=== PATIENT | female | born 1970 | race Caucasian/White ===

== ENCOUNTER 2017-05-18 16:11 | Emergency (ER) | payer SELFPAY ==
--- NOTE | 2017-05-18 17:10 | ER Document Report ---
ED Medical Screen (RME) - General Chief Complaint: Irregular Pulse Stated Complaint: POSSIBLE IRREGULAR HEARTBEAT Time Seen by Provider: 05/18/17 17:08 Mode of Arrival: Ambulatory Information source: Patient TRAVEL OUTSIDE OF THE [place] IN LAST 30 DAYS: No - HPI Patient complains to provider of: palpitations Onset: This afternoon - pt wsa driving in her car earlier when she felt her heart beating irregularly. She denies CP, SOB - Related Data Allergies/Adverse Reactions: No Known Allergies Allergy (Unverified 05/18/17 16:21) Physical Exam - Vital signs Vitals: Temp Pulse Resp BP Pulse Ox 98.4 F 76 16 175/94 H 100 05/18/17 16:30 05/18/17 16:30 05/18/17 16:30 05/18/17 16:30 05/18/17 16:30 Course - Vital Signs Vital signs: Temp Pulse Resp BP Pulse Ox 98.4 F 76 16 175/94 H 100 05/18/17 16:30 05/18/17 16:30 05/18/17 16:30 05/18/17 16:30 05/18/17 16:30
[2017-05-18 17:32] LABS: ABSOLUTE BASOPHILS # (AUTO) 0.1 10^3/uL (0.0-0.2); ABSOLUTE LYMPHOCYTES (AUTO) 1.4 10^3/uL (0.5-4.7); ABSOLUTE MONOCYTES (AUTO) 0.7 10^3/uL (0.1-1.4); ABSOLUTE NEUT (AUTO) 9.1 10^3/uL (1.7-8.2); BASOPHILS % (AUTO) 0.4 % (0-2); EOSINOPHILS % (AUTO) 0.3 % (0-6); HEMATOCRIT 42.5 % (36.0-47.0); HEMOGLOBIN 14.6 g/dL (12.0-15.5); LYMPHOCYTES % (AUTO) 12.4 % (13-45); MEAN CORPUSCULAR HGB CONC 34.4 g/dL (32.0-36.0); MEAN CORPUSCULAR VOLUME 90 fl (80-97); PLATELET COUNT 358 10^3/uL (150-450); RED BLOOD COUNT 4.72 10^6/uL (3.72-5.28); RED CELL DISTRIBUTION WIDTH 12.5 % (11.5-14.0); SEGMENTED NEUTROPHILS % (AUTO) 80.9 % (42-78); TOTAL CELLS COUNTED % (AUTO) 100 %; WHITE BLOOD COUNT 11.3 10^3/uL (4.0-10.5)
[2017-05-18 17:47] LABS: ALANINE AMINOTRANSFERASE 31 U/L (9-52); ALBUMIN 4.8 g/dL (3.5-5.0); ALKALINE PHOSPHATASE 79 U/L (38-126); ANION GAP 10 (5-19); ASPARTATE AMINO TRANSFERASE 22 U/L (14-36); BILIRUBIN,DIRECT 0.5 mg/dL (0.0-0.4); BILIRUBIN,TOTAL 0.5 mg/dL (0.2-1.3); BLOOD UREA NITROGEN 8 mg/dL (7-20); CALCIUM 10.5 mg/dL (8.4-10.2); CARBON DIOXIDE 27 mmol/L (22-30); CHLORIDE 93 mmol/L (98-107); CREATINE KINASE 60 U/L (30-135); GLUCOSE 101 mg/dL (75-110); POTASSIUM 4.4 mmol/L (3.6-5.0); SODIUM 129.6 mmol/L (137-145); TOTAL PROTEIN 8.1 g/dL (6.3-8.2)
[2017-05-18 17:54] LABS: CREATINE KINASE MB 0.42 ng/mL (<4.55)
[2017-05-18 17:59] LABS: TROPONIN I < 0.012 ng/mL
--- NOTE | 2017-05-18 18:08 | EKG REPORT ---
SEVERITY:- BORDERLINE ECG - SINUS RHYTHM PROBABLE LEFT ATRIAL ABNORMALITY : Confirmed by: Balbir Watson MD 18-May-2017 18:08:08
[2017-05-18] MEDS ORDERED: NORMAL SALINE 1000 ML 1,000 ML IV ONE (19:30)
[2017-05-18] MEDS ORDERED: LIDOCAINE 2% VISCOUS SOLN 20 ML UDCUP PO ONE (19:57)
[2017-05-18] MEDS ORDERED: MAG HYDROX/AL HYDROX/SIMETH SUSP 30 ML UDCUP PO ONE (19:57)
[2017-05-18] MEDS ORDERED: METOCLOPRAMIDE HCL ORAL SOLN 10 MG/10 ML UDCUP PO ONE (19:57)
--- NOTE | 2017-05-18 19:59 | ER Document Report ---
ED Cardiac - General Chief Complaint: Irregular Pulse Stated Complaint: POSSIBLE IRREGULAR HEARTBEAT Time Seen by Provider: 05/18/17 17:08 Mode of Arrival: Ambulatory Information source: Patient Notes: Patient is a 46-year-old female who presents to the ER today for feeling of having an abnormal heart rate that started approximately 2 hours ago. Patient states that she has never had this before. She takes blood pressure medication , losartan 50 mg daily and did take it today. She states that her blood pressure is been high however, over the past 2 weeks she has been checking it and it has run about 160/100. She also admits to feeling like she has to belch but cannot and some stomach "uneasiness." Patient states that she does struggle with gastritis. She denies any cough, shortness of breath, history of any heart attack or stroke, high cholesterol. She has never had a stress test. TRAVEL OUTSIDE OF THE [place] IN LAST 30 DAYS: No - Related Data Allergies/Adverse Reactions: No Known Allergies Allergy (Unverified 05/18/17 16:21) Past Medical History - General Information source: Patient - Social History Smoking Status: Never Smoker Chew tobacco use (# tins/day): No Frequency of alcohol use: None Drug Abuse: None Family History: Reviewed & Not Pertinent Patient has suicidal ideation: No Patient has homicidal ideation: No - Past Medical History Cardiac Medical History: Reports: Hx Hypertension Renal/ Medical History: Denies: Hx Peritoneal Dialysis Review of Systems - Review of Systems Constitutional: No symptoms reported EENT: No symptoms reported Cardiovascular: See HPI Respiratory: No symptoms reported Gastrointestinal: See HPI Genitourinary: No symptoms reported Female Genitourinary: No symptoms reported Musculoskeletal: No symptoms reported Skin: No symptoms reported Hematologic/Lymphatic: No symptoms reported Neurological/Psychological: No symptoms reported Physical Exam - Vital signs Vitals: Temp Pulse Resp BP Pulse Ox 98.4 F 76 16 175/94 H 100 05/18/17 16:30 05/18/17 16:30 05/18/17 16:30 05/18/17 16:30 05/18/17 16:30 - Notes Notes: PHYSICAL EXAMINATION: GENERAL: Well-appearing and in no acute distress. HEAD: Atraumatic, normocephalic. EYES: Pupils equal round and reactive to light, extraocular movements intact, sclera anicteric, conjunctiva are normal. ENT: ear canals without erythema or foreign body, TMs pearly serra with good bony landmarks, nares patent, oropharynx clear without exudates. Moist mucous membranes. NECK: Normal range of motion, supple without lymphadenopathy LUNGS: CTAB and equal. No wheezes rales or rhonchi. HEART: Chest nontender to palpation, regular rate and rhythm without murmurs ABDOMEN: Soft, no tenderness. No guarding, no rebound BACK: no vertebral tenderness, normal ROM GI/: no CVA tenderness EXTREMITIES: Normal range of motion, no pitting edema. No cyanosis. NEUROLOGICAL: Cranial nerves grossly intact. Normal sensory/motor exams. PSYCH: Normal mood, normal affect. SKIN: Warm, Dry, normal turgor, no rashes or lesions noted Course - Re-evaluation Re-evalutation: 05/18/17 22:21 No abnormality and EKGs or cardiac monitoring while here in the emergency department. EKGs revealed normal sinus rhythm without evidence of ischemia or abnormality 2. Patient felt better after GI cocktail, then started complaining of some chest pain in the upper chest on the right and left. Her blood pressure at this time was 163/108. Clonidine was given to her and brought her blood pressure down to 143/88, patient stating that she feels "much better." At this time 2 sets of troponins are negative, greater than 3 hours apart. I will send her home with medication for gastritis as well as clonidine in case she needs it to bring her blood pressure down at home and she is to follow-up with her primary care provider. - Vital Signs Vital signs: Temp Pulse Resp BP Pulse Ox 98.4 F 76 14 148/86 H 97 05/18/17 16:30 05/18/17 16:30 05/18/17 23:00 05/18/17 22:01 05/18/17 23:00 - Laboratory Result Diagrams: 05/18/17 17:20 05/18/17 17:20 Laboratory results interpreted by me: 05/18/17 05/18/17 17:20 17:20 WBC 11.3 H Seg Neutrophils % 80.9 H Lymphocytes % 12.4 L Absolute Neutrophils 9.1 H Sodium 129.6 L Chloride 93 L Calcium 10.5 H Direct Bilirubin 0.5 H Discharge - Discharge Clinical Impression: Epigastric pain Chest pain Qualifiers: Chest pain type: unspecified Qualified Code(s): R07.9 - Chest pain, unspecified HTN (hypertension) Qualifiers: Hypertension type: essential hypertension Qualified Code(s): I10 - Essential ( primary) hypertension Condition: Stable Disposition: HOME, SELF-CARE Additional Instructions: Take the clonidine if your blood pressure is 160/100 or higher. Please take only 1 pill. Return immediately for any new or worsening symptoms. Follow up with primary care provider, call tomorrow to make followup appointment. Prescriptions: Clonidine HCl 0.1 mg PO BID PRN #15 tablet PRN Reason: Omeprazole Magnesium [Prilosec Otc] 20 mg PO DAILY #30 tablet. Sucralfate [Carafate 1 gm Tablet] 1 gm PO ACHS #40 tablet
[2017-05-18] MEDS ORDERED: CLONIDINE HCL 0.1 MG TABLET PO ONE (20:46)
[2017-05-18 23:02] VITALS: BP 148/86
--- NOTE | 2017-05-19 07:30 | EKG REPORT ---
SEVERITY:- BORDERLINE ECG - SINUS RHYTHM NONSPECIFIC ST-T CHANGES- INFERIOR LEADS : Confirmed by: Balbir Watson MD 19-May-2017 07:29:25
== END 2017-05-18 23:15 | disposition home or self-care (01) ==
LOC: ER 16:11
DX: R07.9 Chest pain, unspecified (principal); K29.70 Gastritis, unspecified, without bleeding; R10.13 Epigastric pain; I10 Essential (primary) hypertension; Z79.899 Other long term (current) drug therapy
CPT/HCPCS: 93005; 99285; 96360; 36415; 82553; 82550; 85025; 80053; 84484; 93010; J3490; J7030

== ENCOUNTER 2017-05-20 17:58 | Emergency (ER) | payer MEDICAID ==
--- NOTE | 2017-05-20 19:42 | ER Document Report ---
ED Medical Screen (RME) - General Chief Complaint: Epigastric Pain Stated Complaint: BLOOD PRESSUE PROBLEMS Time Seen by Provider: 05/20/17 19:39 Notes: Patient complaining of persistent chest pain. Also located in the epigastric region. Was seen here a few nights ago and had a workup. Was in the ER for 6 hours. Pain came back. Patient is tearful and crying. Patient also stating that she has a little pressure on her chest. Blood pressure has been elevated. I have greeted and performed a rapid initial assessment of this patient. A comprehensive ED assessment and evaluation of the patient, analysis of test results and completion of the medical decision making process will be conducted by additional ED providers. TRAVEL OUTSIDE OF THE [place] IN LAST 30 DAYS: No - Related Data Allergies/Adverse Reactions: No Known Allergies Allergy (Unverified 05/18/17 16:21) Past Medical History - Past Medical History Cardiac Medical History: Reports: Hx Hypertension Renal/ Medical History: Denies: Hx Peritoneal Dialysis Review of Systems - Review of Systems Constitutional: denies: Fever, Malaise, Weakness EENT: denies: Eye pain, Blurred vision Cardiovascular: Chest pain, Palpitations, Heart racing Respiratory: denies: Cough, Hurts to breathe, Short of breath Gastrointestinal: Abdominal pain. denies: Diarrhea, Nausea, Vomiting Physical Exam - Vital signs Vitals: Temp Pulse Resp BP Pulse Ox 98.6 F 83 20 157/82 H 100 05/20/17 18:12 05/20/17 18:12 05/20/17 18:12 05/20/17 18:12 05/20/17 18:12 Interpretation: Normal - Respiratory Respiratory status: No respiratory distress Chest status: Nontender Breath sounds: Normal Chest palpation: Normal. No: Subcutaneous emphysema - Cardiovascular Rhythm: Regular Heart sounds: Normal auscultation Murmur: No Course - Vital Signs Vital signs: Temp Pulse Resp BP Pulse Ox 98.6 F 83 20 157/82 H 100 05/20/17 18:12 05/20/17 18:12 05/20/17 18:12 05/20/17 18:12 05/20/17 18:12
[2017-05-20 20:30] LABS: ABSOLUTE BASOPHILS # (AUTO) 0.1 10^3/uL (0.0-0.2); ABSOLUTE LYMPHOCYTES (AUTO) 2.4 10^3/uL (0.5-4.7); ABSOLUTE MONOCYTES (AUTO) 0.8 10^3/uL (0.1-1.4); BASOPHILS % (AUTO) 0.5 % (0-2); EOSINOPHILS % (AUTO) 0.2 % (0-6); HEMATOCRIT 42.6 % (36.0-47.0); HEMOGLOBIN 14.5 g/dL (12.0-15.5); LYMPHOCYTES % (AUTO) 23.1 % (13-45); MEAN CORPUSCULAR HEMOGLOBIN 30.9 pg (27.0-33.4); MEAN CORPUSCULAR VOLUME 91 fl (80-97); MONOCYTES % (AUTO) 7.7 % (3-13); PLATELET COUNT 371 10^3/uL (150-450); RED BLOOD COUNT 4.69 10^6/uL (3.72-5.28); RED CELL DISTRIBUTION WIDTH 12.6 % (11.5-14.0); SEGMENTED NEUTROPHILS % (AUTO) 68.5 % (42-78); TOTAL CELLS COUNTED % (AUTO) 100 %; WHITE BLOOD COUNT 10.2 10^3/uL (4.0-10.5)
--- NOTE | 2017-05-20 20:32 | RADIOLOGY REPORT (SQ) ---
EXAM DESCRIPTION: CHEST PA/LAT COMPLETED DATE/TIME: 05/20/2017 8:24 pm REASON FOR STUDY: chest pain COMPARISON: None. EXAM PARAMETERS: NUMBER OF VIEWS: two views TECHNIQUE: Digital Frontal and Lateral radiographic views of the chest acquired. RADIATION DOSE: NA LIMITATIONS: none FINDINGS: LUNGS AND PLEURA: No opacities, masses or pneumothorax. No pleural effusion. MEDIASTINUM AND HILAR STRUCTURES: No masses or contour abnormalities. HEART AND VASCULAR STRUCTURES: Heart normal size. No evidence for failure. BONES: No acute findings. HARDWARE: None in the chest. OTHER: No other significant finding. IMPRESSION: NO SIGNIFICANT RADIOGRAPHIC FINDING IN THE CHEST. TECHNICAL DOCUMENTATION: JOB ID: [id number] [employer]- All Rights Reserved
[2017-05-20 20:35] LABS: APPEARANCE,URINE CLEAR; BILIRUBIN,URINE NEGATIVE (NEGATIVE); COLOR,URINE STRAW; GLUCOSE, URINE NEGATIVE (NEGATIVE); KETONES,URINE TRACE mg/dL (NEGATIVE); LEUKOCYTE ESTERASE,URINE NEGATIVE (NEGATIVE); NITRITE,URINE NEGATIVE (NEGATIVE); PROTEIN,URINE NEGATIVE (NEGATIVE); URINE SPECIFIC GRAVITY 1.003; UROBILINOGEN,URINE NEGATIVE mg/dL (<2.0)
[2017-05-20 20:47] LABS: ALANINE AMINOTRANSFERASE 32 U/L (9-52); ALBUMIN 4.7 g/dL (3.5-5.0); ALKALINE PHOSPHATASE 72 U/L (38-126); ANION GAP 11 (5-19); ASPARTATE AMINO TRANSFERASE 22 U/L (14-36); BILIRUBIN,DIRECT 0.5 mg/dL (0.0-0.4); BILIRUBIN,TOTAL 0.7 mg/dL (0.2-1.3); BLOOD UREA NITROGEN 6 mg/dL (7-20); CALCIUM 10.4 mg/dL (8.4-10.2); CARBON DIOXIDE 26 mmol/L (22-30); CHLORIDE 97 mmol/L (98-107); GLUCOSE 98 mg/dL (75-110); LIPASE 44.6 U/L (23-300); POTASSIUM 3.7 mmol/L (3.6-5.0); SODIUM 133.9 mmol/L (137-145); TOTAL PROTEIN 8.1 g/dL (6.3-8.2)
--- NOTE | 2017-05-20 22:07 | ER Document Report ---
ED General - General Chief Complaint: Epigastric Pain Stated Complaint: BLOOD PRESSUE PROBLEMS Time Seen by Provider: 05/20/17 19:39 Notes: Patient is a 46-year-old female presents with complaint of pain in the upper abdomen that is mostly epigastric. The pain then radiates up her chest and feels as if she has something in her throat. She seen a few days ago for this. She was placed on Prilosec as well as sucralfate. She says she has been taking that. She says she admits that she does not eat well. She says the symptoms seem to get worse every time she eats. She also has history of high blood pressure. She is currently visiting from [place]. Her doctors back in [place]. She is on losartan 50 mg a day. She says that this still was not controlling her blood pressure well. She denies any history of abdominal surgeries. No vomiting associated with this. No blood in her stool. No dark tarry stools. No fevers. She has had some recent URI type symptoms. No history of coronary disease. She does not smoke. She drinks approximately 3-4 days a week. She says she only drinks 1-2 beers on those days. TRAVEL OUTSIDE OF THE [place] IN LAST 30 DAYS: No - Related Data Allergies/Adverse Reactions: No Known Allergies Allergy (Unverified 05/18/17 16:21) Past Medical History - Social History Smoking Status: Never Smoker Chew tobacco use (# tins/day): No Frequency of alcohol use: Social Drug Abuse: None Family History: Reviewed & Not Pertinent Patient has suicidal ideation: No Patient has homicidal ideation: No - Past Medical History Cardiac Medical History: Reports: Hx Hypertension Renal/ Medical History: Denies: Hx Peritoneal Dialysis Review of Systems - Review of Systems Notes: My Normal Review Basic REVIEW OF SYSTEMS: CONSTITUTIONAL : Denies fever, chills, or sweats. Denies recent illness. EENT: Denies eye, ear, throat, or mouth pain or symptoms. Denies nasal or sinus congestion. CARDIOVASCULAR: Pain radiating to chest from abdomen. RESPIRATORY: Denies cough, cold, or chest congestion. Denies shortness of breath, difficulty breathing, or wheezing. GASTROINTESTINAL: Epigastric abdominal pain. No vomiting. MUSCULOSKELETAL: Denies neck or back pain or joint pain or swelling. SKIN: Denies rash or skin lesions. NEUROLOGICAL: Denies altered mental status or loss of consciousness. Denies headache. Denies weakness or paralysis or loss of use of either side. Denies problems with gait or speech. Denies sensory or motor loss. ALL OTHER SYSTEMS REVIEWED AND NEGATIVE. Physical Exam - Vital signs Vitals: Temp Pulse Resp BP Pulse Ox 98.6 F 83 20 157/82 H 100 05/20/17 18:12 05/20/17 18:12 05/20/17 18:12 05/20/17 18:12 05/20/17 18:12 - Notes Notes: General Appearance: Well nourished, alert, cooperative, no acute distress, no obvious discomfort. Vitals: reviewed, See vital signs table. Head: no swelling or tenderness to the head Eyes: PERRL, EOMI, Conjuctiva clear Mouth: No decreasd moisture Lungs: No wheezing, No rales, No rhonci, No accessory muscle use, good air exchange bilaterally. Heart: Normal rate, Regular rythm, No murmur, no rub Abdomen: Normal BS, soft, No rigidity. mild left upper quadrant, epigastric, and right upper quadrant abdominal tenderness to palpation. No guarding, no rebound, no abdominal masses, no organomegaly Extremities: strength 5/5 in all extremities, good pulses in all extremities, no swelling or tenderness in the extremities, no edema. Skin: warm, dry, appropriate color, no rash Neuro: speech clear, oriented x 3, normal affect, responds appropriately to questions. Course - Re-evaluation Re-evalutation: 05/21/17 06:10 Patient's abdominal pain does seem very consistent with that of acid reflux and gastritis and that it is mostly epigastric abdominal pain that radiates up the esophagus and she gets a globus type sensation in her throat. I will refer her to the GI doctor for evaluation for possible endoscopy. Prilosec and Carafate. I talked at length about avoiding all alcohol. She does admit that she drinks several days a week. Informed her that continued drinking alcohol for only make her symptoms worse. Also talked about NSAID medications and to avoid these. Also talked about eating a very bland diet for the next 2 weeks. I informed her that she needs to do this in order for her stomach and esophagus to improve. Encouraged her return to ER if she has worsening pain, vomiting of blood, or any blood in her stool. Patient does have chronic hypertension. She says that her losartan has not been controlling her blood pressure for some time now. She requests repeat prescription of losartan. I will also place her on hydrochlorothiazide in conjunction with this and hopefully this will get better control of her blood pressure. She does not have chest pain or shortness of breath. She has no focal weakness or numbness. She does not have any concerning symptoms in conjunction with her high blood pressure. I strongly encouraged her return to ER immediately if she has worsening blood pressure, any side effects from the chlorothiazide, or she feels unwell. I did explain to her that hydrochlorothiazide can sometimes lower blood pressure too far and can also sometimes cause hyponatremia. Explained to the symptoms that would be associated with hyponatremia and to return to ER immediately if she has any other symptoms. Patient agrees with plan and will be discharged home. Dictation of this chart was performed using voice recognition software; therefore, there may be some unintended grammatical errors. - Vital Signs Vital signs: Temp Pulse Resp BP Pulse Ox 98.7 F 83 17 157/88 H 98 05/21/17 00:15 05/20/17 18:12 05/21/17 00:15 05/21/17 00:15 05/21/17 00:15 - Laboratory Result Diagrams: 05/20/17 20:01 05/20/17 20:01 Laboratory results interpreted by me: 05/20/17 05/20/17 20:01 20:01 Sodium 133.9 L Chloride 97 L BUN 6 L Calcium 10.4 H Direct Bilirubin 0.5 H Urine Ketones TRACE H Urine Blood SMALL H - EKG Interpretation by Me Additional EKG results interpreted by me: 05/20/17 22:06 EKG is reviewed and interpreted by me. EKG shows normal sinus rhythm with rate of [address] segment elevation or depression. No ischemic T-wave inversions. KS interval, QRS duration, QTc intervals are within normal range. Old EKG for comparison is from May 18, 2017. Discharge - Discharge Clinical Impression: Epigastric pain HTN (hypertension) Qualifiers: Hypertension type: unspecified Qualified Code(s): I10 - Essential (primary) hypertension Condition: Good Disposition: HOME, SELF-CARE Instructions: Family Physicians / Practices Additional Instructions: Gastritis You have an inflammation of the stomach called gastritis. This commonly causes upper abdominal pain, nausea, and vomiting. In severe cases, bleeding of the stomach lining can occur. Gastritis can be caused by bacteria or viruses , alcohol, or stomach-irritating drugs. Begin with sips of clear liquids. Take increasing amounts of fluid over the first 24 hours. Then start small amounts of bland foods (such as dry toast , applesauce, mashed potato). Gradually resume your usual diet. You should take antacids every two hours until the pain has subsided. Acid -suppressing drugs may be prescribed as well. Avoid aspirin, caffeine, tobacco , and alcohol. If the abdominal pain worsens, or there is evidence of major bleeding in the stomach (such as black, tarry stool, bloody or black vomit, or lightheadedness), you should return immediately. Call the doctor if you aren't improved in 24 to 36 hours. Please avoid all aclohol and caffeinated beverages. Avoid coffee Do not take NSAID medicaitons. Tylenol is safe. Please follow a clear liquid diet for the next 24 hours. Than slowly progress to a bland diet and avoid all fatty foods, fried foods, and acidic foods. Please call the GI doctor, Dr. Recinos, for a follow up appointment as you may eventually need a endoscopy. Your ultrasound showed a normal gallbladder, but you do have a fatty liver. This needs to be followed with ultrasound. Please talk to your doctor about having a repeat ultrasound in 3-6 months for reevaluation. Please make an appointment with the family doctor for further management of her blood pressure. Please return to ER if you are getting dizziness, lightheadedness, confusion, or feel unwell with the start of any blood pressure medication. Prescriptions: Hydrochlorothiazide 25 mg PO DAILY #30 tablet Losartan Potassium 50 mg PO DAILY #30 tablet Forms: Return to Work Referrals: CHLOÉ RECINOS MD [ACTIVE STAFF] - Follow up in 1 week
--- NOTE | 2017-05-20 23:30 | RADIOLOGY REPORT (SQ) ---
EXAM DESCRIPTION: U/S ABDOMEN LTD W/DOPPLER COMPLETED DATE/TIME: 05/20/2017 11:06 pm REASON FOR STUDY: upper abdominal pain COMPARISON: None. TECHNIQUE: Grayscale images acquired of the right upper quadrant and recorded on PACS. Additional se lected color Doppler and spectral images recorded. LIMITATIONS: Acoustical interference from fat or from air in the bowel. FINDINGS: PANCREAS: Partially obscured by overlying bowel gas. The visualized pancreas in the midli ne is unremarkable. LIVER: Measures 12.7 cm. Coarsened echotexture, suggestive of fatty infiltration. LIVER VASCULATURE: Normal directional flow of the main portal vein. GALLBLADDER: No stones. Normal wall thickness. No pericholecystic fluid. ULTRASOUND-DETECTED HUMPHRIES'S SIGN: Negative. INTRAHEPATIC DUCTS AND COMMON DUCT: CBD and intrahepatic ducts normal caliber. INFERIOR VENA CAVA: Obscured by overlying bowel gas. AORTA: No aneurysm in the visualized segments. RIGHT KIDNEY: Measures 10.2 cm in length. Normal echogenicity. No hydronephrosis. No calcifications . PERITONEAL CAVITY AND RIGHT PLEURAL SPACE: No ascites or effusion. IMPRESSION: No cholelithiasis or biliary ductal dilation. Fatty infiltration of the liver. TECHNICAL DOCUMENTATION: JOB ID: [id number] 2010 [email or web address]- All Rights Reserved
[2017-05-21 00:23] VITALS: BP 157/88
--- NOTE | 2017-05-21 08:36 | EKG REPORT ---
SEVERITY:- NORMAL ECG - SINUS RHYTHM : Confirmed by: Balbir Watson MD 21-May-2017 08:35:43
== END 2017-05-21 00:23 | disposition home or self-care (01) ==
LOC: ER 17:58
DX: R10.13 Epigastric pain (principal); I10 Essential (primary) hypertension
CPT/HCPCS: 36415; 71046; 76705; 80053; 81001; 83690; 84484; 85025; 93005; 93010; 93976; 99285

== ENCOUNTER → 2019-03-14 | Outpatient (CLI) | payer BC ==
--- NOTE | 2019-03-14 12:32 | RADIOLOGY REPORT (SQ) ---
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 TECHNIQUE: CT scan of the abdomen and pelvis performed using helical scanning technique with dynamic intravenous contrast injection. No oral contrast. Images reviewed with lung, soft tissue, and bone windows. Reconstructed coronal and sagittal MPR images reviewed. Delayed images for evaluation of the urinary system also acquired. All images stored on PACS. All CT scanners at this facility use dose modulation, iterative reconstruction, and/or weight based d osing when appropriate to reduce radiation dose to as low as reasonably achievable (ALARA). [facility]: Dose Right [facility]: CareDose [facility]: Dose Right [facility]: Teradose 4D [facility]: [employer] CONTRAST TYPE AND DOSE: Contrast/concentration: Isovue 350.00 mg/ml; Total Contrast Delivered: 96.0 ml; Total Saline Delivered: 71.0 ml RENAL FUNCTION: GFR > 60. RADIATION DOSE: DLP 1111.77 mGy cm LIMITATIONS: None. FINDINGS: LOWER CHEST: Refer to the separate report of the CT of the chest. LIVER: The morphology of the liver is non cirrhotic. The portal veins are patent. There is no hepat ic mass. SPLEEN: No splenomegaly or splenic mass. PANCREAS: No abnormality of the pancreas. GALLBLADDER: No abnormality that is apparent on CT. ADRENAL GLANDS: No mass or asymmetry. RIGHT KIDNEY AND URETER: No solid masses. No calcifications. No hydronephrosis or hydroureter. LEFT KIDNEY AND URETER: No solid masses. No calcifications. No hydronephrosis or hydroureter. AORTA AND VESSELS: No aneurysm or dissection of the abdominal aorta. The abdominopelvic vasculature is patent. RETROPERITONEUM: No retroperitoneal adenopathy, hemorrhage or mass. BOWEL AND PERITONEAL CAVITY: No bowel obstruction, bowel wall thickening, or pericolonic/ perienteric inflammation. No mesenteric adenopathy, free intraperitoneal fluid or mesenteric/peritoneal mass APPENDIX: Normal. PELVIS: No abnormality of the uterus and adnexa that is apparent on CT. The urinary bladder is parti ally distended and normal in appearance. ABDOMINAL WALL: Fat containing umbilical hernia. BONES: No fracture or osseous lesion. OTHER: No other finding. IMPRESSION: No acute intra-abdominal abnormality and no abdominal and pelvic metastases. TECHNICAL DOCUMENTATION: JOB ID: [id number] Quality ID # [id number]: Final reports with documentation of one or more dose reduction techniques (e.g., Au tomated exposure control, adjustment of the mA and/or kV according to patient size, use of iterative reconstruction technique) 2010 [employer]- All Rights Reserved Reading location - IP/workstation name: [email or web address]
--- NOTE | 2019-03-14 12:45 | RADIOLOGY REPORT (SQ) ---
EXAM DESCRIPTION: CT CHEST WITH COMPLETED DATE/TIME: 03/14/2019 8:54 am REASON FOR STUDY: C50.811 MALIGNANT NEOPLASM OF OVRLP SITES OF RIGHT FEMALE BREAST C50.811 MALIGNAN T NEOPLASM OF OVRLP SITES OF RIGHT FEMALE BR COMPARISON: None. TECHNIQUE: CT scan of the chest performed using helical scanning technique with dynamic intravenous contrast injection. Images reviewed with lung, soft tissue and bone windows. Reconstructed coronal and sagittal MPR and MIP images reviewed. All images stored on PACS. All CT scanners at this facility use dose modulation, iterative reconstruction, and/or weight based d osing when appropriate to reduce radiation dose to as low as reasonably achievable (ALARA). [facility]: Dose Right [facility]: CareDose [facility]: Dose Right [facility]: Teradose 4D [facility]: [employer] CONTRAST TYPE AND DOSE: 96 mL Omnipaque 350- low osmolar. RENAL FUNCTION: GFR > 60. RADIATION DOSE: CT Rad equipment meets quality standard of care and radiation dose reduction techniq ues were employed. CTDIvol: 5.2 - 8.3 mGy. DLP: 1112 mGy-cm. LIMITATIONS: None. FINDINGS: LUNGS AND PLEURA: The trachea and main bronchi are patent. There is no consolidation, colt und-glass opacification, pleural effusion or nodule/mass HILAR AND MEDIASTINAL STRUCTURES: No mediastinal, hilar or internal thoracic adenopathy. HEART AND VASCULAR STRUCTURES: No aneurysm or dissection of the abdominal aorta. No cardiomegaly or pericardial effusion. No filling defects within the main, right, and left pulmonary arteries. HARDWARE: None in the chest. UPPER ABDOMEN: Refer to the separate report of the CT of the abdomen. THYROID AND OTHER SOFT TISSUES: There is a probable biopsy clip within the lower outer quadrant of th e left breast (31 of series 3). There is a cluster of lymph nodes in the right axilla that retain a normal architecture (with a fatty hilum and a thin cortex) and that are similar in size to lymph node s in the contralateral axilla. There are nonenlarged right-sided subpectoral lymph node that measure up to 7 mm in short axis diameter. There is no abnormality of the thyroid gland. BONES: No fracture or osseous lesion. OTHER: No other finding. IMPRESSION: No thoracic metastases. As detailed above, there is a probable biopsy clip within the l ower outer quadrant of the left breast (image 31 of series 3). In the right axilla there is a cluste r of lymph nodes that retain a normal architecture (with a fatty hilum and a thin cortex) and that ar e similar in size to lymph nodes in the contralateral axilla. There are nonenlarged right-sided subp ectoral lymph nodes that measure up to 7 mm in short axis diameter. TECHNICAL DOCUMENTATION: JOB ID: [id number] Quality ID # [id number]: Final reports with documentation of one or more dose reduction techniques (e.g., Au tomated exposure control, adjustment of the mA and/or kV according to patient size, use of iterative reconstruction technique) 2010 [employer]- All Rights Reserved Reading location - IP/workstation name: [email or web address]
== END ==
LOC: RAD 08:14
PROVIDERS: ATTEND Internal Medicine Hematology & Oncology
DX: C50.811 Malignant neoplasm of overlapping sites of right female breast (principal); R59.0 Localized enlarged lymph nodes
CPT/HCPCS: 71260; 74177; 82565

== ENCOUNTER → 2019-03-19 | Outpatient (CLI) | payer BC ==
--- NOTE | 2019-03-19 12:57 | RADIOLOGY REPORT (SQ) ---
EXAM DESCRIPTION: NM WHOLE BODY BONE SCAN COMPLETED DATE/TIME: 03/19/2019 12:34 pm REASON FOR STUDY: BREAST CA C50.811 MALIGNANT NEOPLASM OF OVRLP SITES OF RIGHT FEMALE BR COMPARISON: CT the chest, CT abdomen and pelvis 03/14/2019 RADIONUCLIDE AND DOSE: 20 millicuries Tc99m HDP. The route of agent administration: Intravenous. ADDITIONAL DRUGS AND DOSES: None. TECHNIQUE: Routine delayed images at 3 hours post radionuclide injection acquired of the bony skelet on including anterior and posterior whole-body projections and additional focused images as needed. LIMITATIONS: None. FINDINGS: BONES: Normal visualization without areas of photopenia or increased bony uptake of radiop harmaceutical. KIDNEYS: Symmetric excretion without obstruction. OTHER: No other significant finding. IMPRESSION: NORMAL BONE SCAN. COMMENT: Quality measure 147: Current bone scan is compared with any available plain radiographs, p rior bone scans, and CT/MRI. TECHNICAL DOCUMENTATION: JOB ID: [id number] [employer]- All Rights Reserved Reading location - IP/workstation name: [email or web address]
== END ==
LOC: RAD 08:35
PROVIDERS: ATTEND Internal Medicine Hematology & Oncology
DX: C50.811 Malignant neoplasm of overlapping sites of right female breast (principal)
CPT/HCPCS: 78306; A9561; Q9969

== ENCOUNTER 2019-03-28 12:55 | Day surgery (SDC) | payer BC ==
[~2019-03-28 12:55] MED LIST: ACETAMINOPHEN 325 MG TABLET PO PRN; CEFAZOLIN SODIUM 1 GM in DEXTROSE 5%-WATER 50 ML IV SCH; RINGERS SOLUTION,LACTATED 1,000 ML IV PRN
[2019-03-28 14:15] LABS: HEMATOCRIT 40.8 % (36.0-47.0); HEMOGLOBIN 13.9 g/dL (12.0-15.5); MEAN CORPUSCULAR HEMOGLOBIN 31.4 pg (27.0-33.4); MEAN CORPUSCULAR HGB CONC 34.2 g/dL (32.0-36.0); MEAN CORPUSCULAR VOLUME 92 fl (80-97); PLATELET COUNT 317 10^3/uL (150-450); RED BLOOD COUNT 4.44 10^6/uL (3.72-5.28); RED CELL DISTRIBUTION WIDTH 12.6 % (11.5-14.0); WHITE BLOOD COUNT 8.6 10^3/uL (4.0-10.5)
[2019-03-28] MEDS ORDERED: FENTANYL CITRATE INJ/PF 100 MCG/2 ML AMPUL ONE ×2 (15:26→16:51)
[2019-03-28] MEDS ORDERED: MIDAZOLAM 2 MG/2 ML INJ ONE (15:27)
[2019-03-28] MEDS ORDERED: PROPOFOL INJ 200 MG/20 ML VIAL IV ONE ×2 (15:27→17:28)
[2019-03-28] MEDS ORDERED: LIDOCAINE 1%/EPINEPHRINE INJ 20 ML VIAL ONE (15:28)
[2019-03-28] MEDS ORDERED: KETAMINE HCL INJ 500 MG/10 ML VIAL ONE (16:04)
[2019-03-28] MEDS ORDERED: LIDOCAINE 1%/EPINEPHRINE INJ 20 ML VIAL INJ ONE (16:09)
[2019-03-28] MEDS ORDERED: PROMETHAZINE HCL INJ 25 MG/1 ML VIAL IV PRN (16:27)
[2019-03-28] MEDS ORDERED: MORPHINE SULFATE 10 MG/ML INJ IV PRN (16:27)
[2019-03-28] MEDS ORDERED: DIPHENHYDRAMINE HCL 50 MG/ML VIAL IV PRN (16:27)
[2019-03-28] MEDS ORDERED: FENTANYL CITRATE INJ/PF 100 MCG/2 ML AMPUL IV PRN (16:27)
[2019-03-28] MEDS ORDERED: MEPERIDINE HCL/PF INJ 25 MG/1 ML DISP.SYRIN IV PRN (16:27)
[2019-03-28] MEDS ORDERED: OXYCODONE-ACETAMINOPHEN 5-325 MG TABLET PO PRN ×2 (16:27)
--- NOTE | 2019-03-28 16:40 | Discharge Summary ---
Discharge Summary (SDC) - Discharge Final Diagnosis: Locally advanced lobular carcinoma right breast Date of Surgery: 03/28/19 Discharge Date: 03/28/19 Condition: Good Treatment or Instructions: May use port; resume preoperative medications, diet, activity. Patient to return to [place] [facility] in 2 weeks for postoperative check. May shower in 48 hours; allow Steri-Strips to fall off Referrals: CATALINA FLORES PA-C [Primary Care Provider] - Discharge Diet: As Tolerated Discharge Activity: Activity As Tolerated Report the Following to Your Physician Immediately: Shortness of Breath, Increase in Pain, Fever over 101 Degrees
--- NOTE | 2019-03-28 16:49 | Operative Report ---
Operative Report DATE OF SURGERY: 03/28/19 PREOPERATIVE DIAGNOSIS: Locally advanced lobular carcinoma right breast POSTOPERATIVE DIAGNOSIS: Same OPERATION: 1. Ultrasound directed insertion of a single chamber [id number] catheter left subclavian position. 2. Interpretation of intraoperative fluoroscopy SURGEON: RAINA BERNARD ANESTHESIA: LMAC TISSUE REMOVED OR ALTERED: none COMPLICATIONS: none ESTIMATED BLOOD LOSS: Scant INTRAOPERATIVE FINDINGS: See below PROCEDURE: The patient was taken to the preop holding area to the main operating room where LMAC anesthesia was induced. Arms were tucked at patient's side, neck exposed. The neck chest both sides prepped and draped with Betadine Surgical plan surgical timeout were conducted. The variable frequency linear transducer was used to skin the left neck. The left internal jugular vein was felt to be suitable for cannulation. Overlying skin at the base of the left neck was anesthetized with 1% plain lidocaine. A incision was made 1 cm with a #15 blade, and the micro needle and wire were threaded into the left internal jugular vein A suitable site for placement of the port was chosen in the left subclavian position. Skin again was anesthetized with 1% plain lidocaine. A 2 and half centimeter long incision was made parallel to the clavicle, port pocket developed large enough to accommodate a single-chamber port. This was performed using blunt dissection electrocautery. The single lumen 8 Japanese catheter was tunneled between the 2 incisions, attached to the port and secured with the plastic ring. The port was tucked into the subclavian pocket. The micro wire was switched over to a conventional 0.030 guidewire using the micro introducer sheath. Then under fluoroscopic guidance, the 9 Japanese dilator and sheath were threaded over the wire, wire and dilator removed, catheter free and threaded into the internal jugular vein and strip away sheath removed, leaving the catheter at the confluence of the innominate vein and superior vena cava. There was no evidence of ectopy. There was no kinking of the catheter at the neck. The catheter was aspirated and flushed with heparinized saline. Sponge and needle counts are correct. There was no mechanical bleeding. We felt the operation was complete. Wounds closed with 3-0 Vicryl benzoin and Steri-Strips. Patient tolerated procedure well, taken to the recovery room in stable condition.
--- NOTE | 2019-03-28 16:56 | RADIOLOGY REPORT (SQ) ---
EXAM DESCRIPTION: CHEST SINGLE VIEW; FLUORO/CV PLACEMENT COMPLETED DATE/TIME: 03/28/2019 4:42 pm REASON FOR STUDY: LT SIDE PORT PLACEMENT C50.919 MALIGNANT NEOPLASM OF UNSP SITE OF UNSPECIFIED FEM AL COMPARISON: Two-view chest 05/20/2017 CT chest 03/14/2019 FLUOROSCOPY TIME: 0.8 minutes 3 digital fluoroscopic images saved to PACS. TECHNIQUE: Intra-operative images acquired during surgical procedure to evaluate progress. NUMBER OF IMAGES: 3 digital fluoroscopic images LIMITATIONS: None. FINDINGS: Intra procedural imaging and fluoro during placement of a left-sided permanent central cynthia e. Please see the operative report further details IMPRESSION: IMAGE(S) OBTAINED DURING PROCEDURE. COMMENT: Quality ID 145: Final reports for procedures using fluoroscopy that document radiation exp osure indices, or exposure time and number of fluorographic images (if radiation exposure indices are not available) Please consult full operative report of the attending physician for description of the procedure. TECHNICAL DOCUMENTATION: JOB ID: [id number] [employer]- All Rights Reserved Reading location - IP/workstation name: [email or web address]
--- NOTE | 2019-03-28 16:56 | RADIOLOGY REPORT (SQ) ---
EXAM DESCRIPTION: CHEST SINGLE VIEW; FLUORO/CV PLACEMENT COMPLETED DATE/TIME: 03/28/2019 4:42 pm REASON FOR STUDY: LT SIDE PORT PLACEMENT C50.919 MALIGNANT NEOPLASM OF UNSP SITE OF UNSPECIFIED FEM AL COMPARISON: Two-view chest 05/20/2017 CT chest 03/14/2019 FLUOROSCOPY TIME: 0.8 minutes 3 digital fluoroscopic images saved to PACS. TECHNIQUE: Intra-operative images acquired during surgical procedure to evaluate progress. NUMBER OF IMAGES: 3 digital fluoroscopic images LIMITATIONS: None. FINDINGS: Intra procedural imaging and fluoro during placement of a left-sided permanent central cynthia e. Please see the operative report further details IMPRESSION: IMAGE(S) OBTAINED DURING PROCEDURE. COMMENT: Quality ID 145: Final reports for procedures using fluoroscopy that document radiation exp osure indices, or exposure time and number of fluorographic images (if radiation exposure indices are not available) Please consult full operative report of the attending physician for description of the procedure. TECHNICAL DOCUMENTATION: JOB ID: [id number] [employer]- All Rights Reserved Reading location - IP/workstation name: [email or web address]
[2019-03-28 19:46] VITALS: BP 173/97
== END 2019-03-28 19:00 | disposition home or self-care (01) ==
LOC: OROUT 12:55
PROVIDERS: ATTEND Surgery
DX: C50.911 Malignant neoplasm of unspecified site of right female breast (principal); Z17.0 Estrogen receptor positive status [ER+]; F12.90 Cannabis use, unspecified, uncomplicated; I10 Essential (primary) hypertension; Z80.3 Family history of malignant neoplasm of breast; Z79.899 Other long term (current) drug therapy
CPT/HCPCS: 36561; 36415; 85027; 81025; 71045; 77001; C1752; C1788; J2250; J0690; J3010; J3490 ×2; J7060; J2704; J1642; 532

== ENCOUNTER 2019-03-29 01:26 | Emergency (ER) | payer BC ==
[2019-03-29 03:22] LABS: ABSOLUTE BASOPHILS # (AUTO) 0.1 10^3/uL (0.0-0.2); ABSOLUTE EOSINOPHILS # (AUTO) 0.1 10^3/uL (0.0-0.6); ABSOLUTE LYMPHOCYTES (AUTO) 1.7 10^3/uL (0.5-4.7); ABSOLUTE NEUT (AUTO) 6.2 10^3/uL (1.7-8.2); BASOPHILS % (AUTO) 0.7 % (0-2); EOSINOPHILS % (AUTO) 0.9 % (0-6); HEMATOCRIT 40.4 % (36.0-47.0); HEMOGLOBIN 13.9 g/dL (12.0-15.5); MEAN CORPUSCULAR HEMOGLOBIN 31.3 pg (27.0-33.4); MEAN CORPUSCULAR HGB CONC 34.4 g/dL (32.0-36.0); MEAN CORPUSCULAR VOLUME 91 fl (80-97); MONOCYTES % (AUTO) 10.7 % (3-13); PLATELET COUNT 337 10^3/uL (150-450); RED BLOOD COUNT 4.45 10^6/uL (3.72-5.28); RED CELL DISTRIBUTION WIDTH 12.8 % (11.5-14.0); SEGMENTED NEUTROPHILS % (AUTO) 68.7 % (42-78); TOTAL CELLS COUNTED % (AUTO) 100 %; WHITE BLOOD COUNT 9.1 10^3/uL (4.0-10.5)
[2019-03-29 05:36] VITALS: BP 142/91
--- NOTE | 2019-03-29 05:58 | ER Document Report ---
ED General - General Chief Complaint: Post Surgical Bleeding Stated Complaint: BLEEDING AT PORT Time Seen by Provider: 03/29/19 05:44 Primary Care Provider: CATALINA FLORES PA-C [Primary Care Provider] - Follow up as needed Notes: 48-year-old female with breast cancer had a port inserted on her left side of neck and chest yesterday around [address] Brooks. States she woke up in a pool of blood this evening just before she came to the emergency department bleeding from the insertion site. Denies taking any blood thinners, denies being on any active treatment for the breast cancer, is supposed to start bruno motherapy next week. Denies any dizziness or lightheadedness. TRAVEL OUTSIDE OF THE [place] IN LAST 30 DAYS: No - Related Data Allergies/Adverse Reactions: No Known Allergies Allergy (Verified 03/28/19 16:14) Past Medical History - General Information source: Patient - Social History Smoking Status: Never Smoker Chew tobacco use (# tins/day): No Frequency of alcohol use: Social Drug Abuse: Marijuana Family History: Reviewed & Not Pertinent Patient has suicidal ideation: No Patient has homicidal ideation: No - Past Medical History Cardiac Medical History: Reports: Hx Hypertension Pulmonary Medical History: Denies: Hx Asthma, Hx Bronchitis, Hx COPD, Hx Pneumonia Neurological Medical History: Denies: Hx Cerebrovascular Accident, Hx Seizures Renal/ Medical History: Denies: Hx Peritoneal Dialysis Musculoskeletal Medical History: Denies Hx Arthritis Review of Systems - Review of Systems Constitutional: No symptoms reported EENT: See HPI - bleeding from neck Skin: See HPI Hematologic/Lymphatic: See HPI Physical Exam - Vital signs Vitals: Temp Pulse Resp BP Pulse Ox 98 F 78 20 173/96 H 99 03/29/19 01:39 03/29/19 01:39 03/29/19 01:39 03/29/19 01:39 03/29/19 01:39 Interpretation: Hypertensive - General General appearance: Appears well, Alert In distress: None - HEENT Head: Normocephalic, Atraumatic Eyes: Normal Mucous membranes: Moist - Respiratory Respiratory status: No respiratory distress - Skin Skin Temperature: Warm Skin Moisture: Dry Skin Color: Normal Notes: left side of neck has steri-strips in good position with small clot located underneath them, no active bleeeding by the time of my exam. No pulsatile mass. Left anterior chest also has Steri-Strips in good position without any bleeding, small amount of dried blood. Consistent with insertion of port. Course - Re-evaluation Re-evalutation: 03/29/19 06:01 No anemia on the CBC, bleeding controlled with direct pressure by patient. Discharged home. - Vital Signs Vital signs: Temp Pulse Resp BP Pulse Ox 97.3 F 72 18 142/91 H 99 03/29/19 05:35 03/29/19 05:35 03/29/19 05:35 03/29/19 05:35 03/29/19 05:35 - Laboratory Result Diagrams: 03/29/19 03:06 Discharge - Discharge Clinical Impression: Encounter for postoperative wound check, Postoperative bleeding from incision Condition: Stable Disposition: HOME, SELF-CARE Additional Instructions: Today you had bleeding at the insertion site of the port. The bleeding stopped on its own. We did not give you any medications to stop it. The port goes into a vein not an artery as you heard. If the bleeding starts again please hold firm pressure for 15 minutes. Do not peek. If the bleeding does not stop pleas e come to the emergency department. Referrals: CATALINA FLORES PA-C [Primary Care Provider] - Follow up as needed
== END 2019-03-29 06:00 | disposition home or self-care (01) ==
LOC: ER 01:26
DX: L76.22 Postprocedural hemorrhage of skin and subcutaneous tissue following other procedure (principal); Y83.8 Other surgical procedures as the cause of abnormal reaction of the patient, or of later complication, without mention of misadventure at the time of the procedure; C50.919 Malignant neoplasm of unspecified site of unspecified female breast; F12.10 Cannabis abuse, uncomplicated; I10 Essential (primary) hypertension
CPT/HCPCS: 36415; 85025; 99283

== ENCOUNTER → 2019-05-16 | Outpatient (CLI) | payer BC | LOC: RAD 05-02 08:09 | PROVIDERS: ATTEND Internal Medicine Hematology & Oncology | DX: C50.811 Malignant neoplasm of overlapping sites of right female breast (principal) | CPT/HCPCS: 82565; 77049; A9576 ==

== ENCOUNTER → 2019-12-25 | Outpatient (CLI) | payer BC ==
--- NOTE | 2019-12-25 13:35 | RADIOLOGY REPORT (SQ) ---
EXAM DESCRIPTION: NM WHOLE BODY BONE SCAN IMAGES COMPLETED DATE/TIME: 12/25/2019 12:52 pm REASON FOR STUDY: C50.811 MALIGNANT NEOPLASM OF OVRLP SITES OF RIGHT FEMALE BREAST C50.811 MALIGNAN T NEOPLASM OF OVRLP SITES OF RIGHT FEMALE BR COMPARISON: 03/19/2019 RADIONUCLIDE AND DOSE: 20 millicuries Tc99m MDP. The route of agent administration: Intravenous. ADDITIONAL DRUGS AND DOSES: None. TECHNIQUE: Routine delayed images at 3 hours post radionuclide injection acquired of the bony skelet on including anterior and posterior whole-body projections and additional focused images as needed. LIMITATIONS: None. FINDINGS: BONES: Normal activity throughout the skeleton except for a small focal area of increased uptake at the vertex of the calvarium. KIDNEYS: Symmetric excretion without obstruction. OTHER: No other significant finding. IMPRESSION: The study is generally normal, however, there is a single focus of increased uptake in t he calvarium. A metastatic lesion cannot be excluded. COMMENT: Quality measure 147: Current bone scan is compared with any available plain radiographs, p rior bone scans, and CT/MRI. TECHNICAL DOCUMENTATION: JOB ID: [id number] 2010 [employer] All Rights Reserved Reading location - IP/workstation name: [email or web address]
--- NOTE | 2019-12-25 14:27 | RADIOLOGY REPORT (SQ) ---
EXAM DESCRIPTION: CT CHEST WITH IMAGES COMPLETED DATE/TIME: 12/25/2019 9:17 am REASON FOR STUDY: C50.811 MALIGNANT NEOPLASM OF OVRLP SITES OF RIGHT FEMALE BREAST C50.811 MALIGNAN T NEOPLASM OF OVRLP SITES OF RIGHT FEMALE BR COMPARISON: 03/14/2019 TECHNIQUE: CT scan of the chest performed using helical scanning technique with dynamic intravenous contrast injection. Images reviewed with lung, soft tissue and bone windows. Reconstructed coronal and sagittal MPR and MIP images reviewed. All images stored on PACS. All CT scanners at this facility use dose modulation, iterative reconstruction, and/or weight based d osing when appropriate to reduce radiation dose to as low as reasonably achievable (ALARA). [facility]: Dose Right [facility]: CareDose [facility]: Dose Right [facility]: Teradose 4D [facility]: [employer] CONTRAST TYPE AND DOSE: 95 mL Omnipaque 350- low osmolar. RENAL FUNCTION: Creatinine 0.6 RADIATION DOSE: CT Rad equipment meets quality standard of care and radiation dose reduction techniq ues were employed. CTDIvol: 6.9 - 10.6 mGy. DLP: 1322 mGy-cm. . LIMITATIONS: None. FINDINGS: LUNGS AND PLEURA: There are what appear to be radiation changes in the right upper lobe la terally. No pulmonary nodules. HILAR AND MEDIASTINAL STRUCTURES: No identified masses or abnormal nodes. HEART AND VASCULAR STRUCTURES: No aneurysm or dissection. No central pulmonary emboli. No pericardi al effusion. HARDWARE: None in the chest. UPPER ABDOMEN: See separate report of the CT of the abdomen. THYROID AND OTHER SOFT TISSUES: No masses. No adenopathy. BONES: No significant finding. OTHER: No other significant finding. IMPRESSION: There are what appear to be radiation changes in right upper lobe. No metastatic diseas e is seen in the thorax. TECHNICAL DOCUMENTATION: JOB ID: [id number] Quality ID # 436: Final reports with documentation of one or more dose reduction techniques (e.g., Au tomated exposure control, adjustment of the mA and/or kV according to patient size, use of iterative reconstruction technique) 2010 [employer]- All Rights Reserved Reading location - IP/workstation name: [email or web address]
--- NOTE | 2019-12-25 14:35 | RADIOLOGY REPORT (SQ) ---
EXAM DESCRIPTION: CT ABD/PELVIS WITH IV ONLY IMAGES COMPLETED DATE/TIME: 12/25/2019 9:17 am REASON FOR STUDY: C50.811 MALIGNANT NEOPLASM OF OVRLP SITES OF RIGHT FEMALE BREAST C50.811 MALIGNAN T NEOPLASM OF OVRLP SITES OF RIGHT FEMALE BR COMPARISON: 03/14/2019 TECHNIQUE: CT scan of the abdomen and pelvis performed using helical scanning technique with dynamic intravenous contrast injection. No oral contrast. Images reviewed with lung, soft tissue, and bone windows. Reconstructed coronal and sagittal MPR images reviewed. Delayed images for evaluation of the urinary system also acquired. All images stored on PACS. All CT scanners at this facility use dose modulation, iterative reconstruction, and/or weight based d osing when appropriate to reduce radiation dose to as low as reasonably achievable (ALARA). [facility]: Dose Right [facility]: CareDose [facility]: Dose Right [facility]: Teradose 4D [facility]: [employer] CONTRAST TYPE AND DOSE: contrast/concentration: Isovue 350.00 mmol/ml; Total Contrast Delivered: 95. 0 ml; Total Saline Delivered: 70.0 ml RENAL FUNCTION: Creatinine 0.6 RADIATION DOSE: . LIMITATIONS: None. FINDINGS: LOWER CHEST: See separate report of the CT of the chest. LIVER: Normal size. No masses. No dilated ducts. SPLEEN: Normal size. No focal lesions. PANCREAS: No masses. No significant calcifications. No adjacent inflammation or peripancreatic fluid collections. Pancreatic duct not dilated. GALLBLADDER: No identified stones by CT criteria. No inflammatory changes to suggest cholecystitis. ADRENAL GLANDS: No significant masses or asymmetry. RIGHT KIDNEY AND URETER: No solid masses. No significant calcifications. No hydronephrosis or hyd roureter. LEFT KIDNEY AND URETER: No solid masses. No significant calcifications. No hydronephrosis or hydr oureter. AORTA AND VESSELS: No aneurysm. No dissection. Renal arteries, SMA, celiac without stenosis. RETROPERITONEUM: No retroperitoneal adenopathy, hemorrhage or masses. BOWEL AND PERITONEAL CAVITY: No masses or inflammatory changes. No free fluid or peritoneal masses. APPENDIX: Not identified. PELVIS: No mass. No free fluid. Normal bladder. ABDOMINAL WALL: There is a subcutaneous opacity in the left buttock area, possible sebaceous cyst. BONES: No significant or acute findings. OTHER: No other significant finding. IMPRESSION: There is no evidence of metastatic disease in the abdomen or pelvis. TECHNICAL DOCUMENTATION: JOB ID: [id number] Quality ID # 436: Final reports with documentation of one or more dose reduction techniques (e.g., Au tomated exposure control, adjustment of the mA and/or kV according to patient size, use of iterative reconstruction technique) 2010 [employer]- All Rights Reserved Reading location - IP/workstation name: [email or web address]
== END ==
LOC: RAD 08:45
PROVIDERS: ATTEND Internal Medicine Hematology & Oncology
DX: C50.811 Malignant neoplasm of overlapping sites of right female breast (principal)
CPT/HCPCS: 82565; 78306; 71260; 74177; A9503; Q9969

== ENCOUNTER → 2019-12-31 | Outpatient (CLI) | payer BC ==
--- NOTE | 2019-12-31 12:04 | RADIOLOGY REPORT (SQ) ---
EXAM DESCRIPTION: SKULL 4 VIEWS IMAGES COMPLETED DATE/TIME: 12/31/2019 10:05 am REASON FOR STUDY: MALIGNANT NEOPLASM OF OVRLP SITES OF RT FEMALE BREAST,DISORDER OF BONE, UNS C50.81 1 MALIGNANT NEOPLASM OF OVRLP SITES OF RIGHT FEMALE BR M89.9 DISORDER OF BONE, UNSPECIFIED COMPARISON: 12/25/2019 bone scan NUMBER OF VIEWS: Five views TECHNIQUE: PA, Lanre's, right and left lateral views. LIMITATIONS: None. FINDINGS: SKULL: Sutures are normal. No skull fractures. Ill-defined sclerosis at the midline vert ex which is favored to be physiologic and related to calvarial sutures. No discrete lytic lesions. OTHER: No other significant finding. IMPRESSION: 1. Ill-defined sclerosis at the midline vertex which is favored to be physiologic and r elated to calvarial sutures. No discrete lytic lesions. 2. No other evidence of acute bony abnormality. TECHNICAL DOCUMENTATION: JOB ID: [id number] [address]- All Rights Reserved Reading location - IP/workstation name: [email or web address]
== END ==
LOC: OD 09:28
PROVIDERS: ATTEND Internal Medicine Hematology & Oncology
DX: C50.811 Malignant neoplasm of overlapping sites of right female breast (principal); M89.9 Disorder of bone, unspecified
CPT/HCPCS: 70260

== ENCOUNTER → 2020-01-17 | Outpatient (CLI) | payer BC ==
--- NOTE | 2020-01-17 22:15 | XCELERA REPORT ---
[address] [address] Transthoracic Echocardiogram Report Name: ADITI MONAE Age: 49 yrs Gender: Female : 1970 Patient Status: Outpatient Patient Location: Study Date: 01/17/2020 09:26 AM History: HTN Dyspnea Height: 65 in Weight: 180 lb BSA: 1.9 m2 Procedure: A complete two-dimensional transthoracic echocardiogram was performed (2D, M-mode, spectral and color flow Doppler). The study was technically difficult with many images being suboptimal in quality. Reason For Study: HTN DYSPNEA Previous Evaluation: No previous studies were available. History: HTN. Shortness of breath. Ordering Physician: MALCOLM FOUNTAIN Performed By: Ksenia Reyna Interpretation Summary Left ventricular systolic function is normal. The Ejection Fraction estimate is 55-60% Doppler measurements suggest pseudonormalized left ventricular relaxation, which is associated with grade II/IV or mild to moderate diastolic dysfunction The right ventricle is normal in size and function. There is a trace amount of mitral regurgitation There is no aortic valve stenosis There is a trace amount of tricuspid regurgitation There is mild pulmonary hypertension by echo There is no pericardial effusion. MMode/2D Measurements & Calculations RVDd: 2.8 cm LVIDd: 4.6 cm FS: 39.2 % Ao root diam: 2.9 cm IVSd: 0.91 cm LVIDs: 2.8 cm EDV(Teich): 99.0 ml Ao root area: 6.4 cm2 LVPWd: 0.86 cm ESV(Teich): 30.0 ml LA dimension: 3.3 cm EF(Teich): 69.7 % Doppler Measurements & Calculations MV E max birgit: MV P1/2t max birgit: Ao V2 max: LV V1 max P.5 cm/sec 119.4 cm/sec 147.7 cm/sec 6.4 mmHg MV A max birgit: MV P1/2t: 64.5 msec Ao max P.7 mmHgLV V1 max: 95.8 cm/sec MVA(P1/2t): 3.4 cm2 126.4 cm/sec MV E/A: 1.2 MV dec slope: 542.6 cm/sec2 MV dec time: 0.23 sec PA V2 max: TR max birgit: MV P1/2t-pr_phl: 90.3 cm/sec 266.0 cm/sec 64.5 msec PA max P.3 mmHgTR max P.3 mmHg Left Ventricle The left ventricle is normal in size. There is normal left ventricular wall thickness. Left ventricular systolic function is normal. The Ejection Fraction estimate is 55-60%. Doppler measurements suggest pseudonormalized left ventricular relaxation, which is associated with grade II/IV or mild to moderate diastolic dysfunction. Right Ventricle The right ventricle is normal in size and function. Atria The right atrium is normal. The left atrial size is normal. The interatrial septum is intact with no evidence for an atrial septal defect. There is no Doppler evidence for an interatrial shunt. Mitral Valve The mitral valve is grossly normal. There is no mitral valve stenosis. There is a trace amount of mitral regurgitation. Aortic Valve The aortic valve is not well visualized secondary to technical limitations. The aortic valve opens well. There is no aortic valve stenosis. Tricuspid Valve The tricuspid valve is not well visualized, but is grossly normal. There is no tricuspid stenosis. There is a trace amount of tricuspid regurgitation. Best estimated right ventricular systolic pressure is elevated at 30-40mmHg. There is mild pulmonary hypertension by echo. Pulmonic Valve The pulmonic valve is not well visualized. There is no pulmonic valvular stenosis. There is a trace amount of pulmonic regurgitation. Great Vessels The aortic root is normal size. The inferior vena cava appeared normal and decreased > 50% with respiration (RAP 5-10 mmHg). Effusions There is no pericardial effusion. : MALCOLM FOUNTAIN Anil
== END ==
LOC: SP 08:41
PROVIDERS: ATTEND Internal Medicine
DX: I25.9 Chronic ischemic heart disease, unspecified (principal); R07.9 Chest pain, unspecified; I10 Essential (primary) hypertension; R06.00 Dyspnea, unspecified
CPT/HCPCS: 93306

== ENCOUNTER → 2020-04-21 | Outpatient (CLI) | payer BC, OTHER ==
--- NOTE | 2020-04-21 12:21 | DRAGON STRESS TEST REPORT ---
Exercise stress test Date: April 21, 2020 Referring physician: Ozzy Rich MD Performing physician: Joshua Fountain MD Indication: Chest pain Clinical history 49-year-old lady with medical history significant for CA breast status post mastectomy chemotherapy as well as radiation and systemic hypertension who presented to the office with complaints of chest pain as well as dyspnea. We decided to proceed with treadmill stress testing. Procedure The patient presented to the stress lab. The patient exercised on the treadmill according to [employer] protocol for a total of 9 minutes and 21 seconds achieving a maximum heart rate of 151 bpm which was 87% of maximum predicted of 173 bpm. The maximum workload was 11.2 METS. The presenting EKG showed sinus rhythm at 90 bpm. The initial blood pressure was 180/107 mmHg. Upon exercise the heart rate hernandez to a maximum of 151 beats per minute and the blood pressure hernandez to a maximum of 213/105 mmHg. The patient had appropriate increment in heart rate and hypertensive response to blood pressure with exercise. The exercise EKG was negative for myocardial ischemia. There were no arrhythmias noted. There was no ectopy noted. The recovery EKG did not reveal any evidence of myocardial ischemia. The patient tolerated the exercise well and did not report chest pain or dyspnea. The test was terminated on account of patient fatigue and patient having achieved target heart rate. The patient's EKG and vital signs were monitored throughout the procedure. Conclusion The exercise EKG is negative for myocardial ischemia. Excellent exercise tolerance. Normal heart rate and hypertensive blood pressure response to exercise. Resting hypertension was also noted and the patient was asked to increase her carvedilol dose to 12.5 mg twice daily in addition to pursuing present dose of losartan and amlodipine. The patient will be given an appointment to discuss these results. [facility]
== END ==
LOC: RAD 09:20
PROVIDERS: ATTEND Internal Medicine
DX: I10 Essential (primary) hypertension (principal); R07.9 Chest pain, unspecified; R06.00 Dyspnea, unspecified
CPT/HCPCS: 93017